=== PATIENT | female | born 1995 | race Caucasian/White ===

== ENCOUNTER → 2017-05-10 | Outpatient (CLI) | payer BC, MEDICAID ==
[~2017-05-10] MED LIST: AVPAK AZITHROM250 MG PO; FERROUS SULFAT325 M2 PO; MEDROL 4MG. DOSE4 MG PO; PRENATAL PLUS1 TA1 PO; PROMETH/CODEIN120 ML PO; TYLENOL W/CODEI1 TA4 PO
--- NOTE | 2017-05-10 09:56 | RADIOLOGY REPORT PS360 ---
US RUQ-(ABD LTD)1ORGAN/QUAD/FU HISTORY: RUQ PAIN ORDERING PHYSICIAN: Neeta Murray APRN PATIENT AGE: 22 years COMPARISON: None FINDINGS: PANCREAS:Unremarkable. No obvious mass or abnormal fluid collection. No ductal dilatation LIVER:No focal liver lesions demonstrated. Homogeneous echogenicity. No intrahepatic biliary ductal dilatation evident RIGHT KIDNEY:Unremarkable. Normal size and echogenicity. No hydronephrosis GALLBLADDER:There are numerous gallstones present. No gallbladder wall thickening, pericholecystic fluid, or biliary dilatation is evident. Common bile duct is 4 mm. IMPRESSION: CHOLELITHIASIS
== END ==
LOC: RAD 08:30
DX: R10.11 Right upper quadrant pain (principal)

== ENCOUNTER → 2017-05-29 | Outpatient (CLI) | payer BC, MEDICAID ==
[2017-05-29 16:07] LABS: BILIRUBIN, INDIRECT 0.3 mg/dL (0-0.9)
== END ==
LOC: LAB 11:17
PROVIDERS: Nurse Practitioner Family
DX: K80.12 Calculus of gallbladder with acute and chronic cholecystitis without obstruction (principal); Z01.818 Encounter for other preprocedural examination

== ENCOUNTER 2017-06-15 06:07 | Day surgery (SDC) | payer BC, MEDICAID ==
[~2017-06-15] VITALS: Ht 165.1 cm; Wt 63.5 kg
--- NOTE | 2017-06-15 08:35 | Operative Note ---
Surgeon/Diagnoses Surgeon/[employer] Manager(s) Date of procedure: 06/15/17 Surgeon: MD Demetrio Harman Diagnoses Pre-op diagnosis: Chronic Calculous Cholecystitis Post-op diagnosis same Procedure Procedure Procedure: Laparoscopic Cholecystectomy Indications: BETHANY SUÁREZ is a 22 year-old Female with a history of right upper quadrant pain and radiographic evidence of chronic calculus cholecystitis. Findings: Significant fat stranding/chronic adhesions between omentum and gallbladder Procedure Description: After informed consent was obtained, the patient was taken to the operating room and placed in the supine position. General anesthesia was induced and the patient's abdomen was prepped and draped in a sterile fashion. After infiltration with local anesthetic an infraumbilical incision was made. A Veress needle was placed in position. The abdomen was insufflated. A 5 mm optical trocar was placed in position. Under direct visualization, 2 additional 5 mm trocars were placed in the RIGHT upper quadrant. A 12 mm trocar was placed in the subxiphoid position. The gallbladder was elevated up and over the liver margin. The tissue around the cystic duct was carefully dissected. Clips were placed proximally and the duct was transected at the infundibulum utilizing harmonic sharad. Harmonic sharad were then utilized to remove the gallbladder from the liver margin. The gallbladder was placed in a retrieval bag and removed through the subxiphoid trocar site. The RIGHT upper quadrant was thoroughly irrigated. No active bleeding or bile leak was noted. The fascia at the subxiphoid trocar site was reapproximated utilizing the sha-close device. Pneumoperitoneum was released as the remaining trocars were removed. All wounds were irrigated and skin was closed with 4-0 Monocryl in a subcuticular fashion. Steri-Strips were applied and the patient's anesthetic agents were reversed. After extubation, the patient was transferred to recovery in stable condition. EBL (ml): 10 Anesthesia: GETA Complications: No immediate Specimens: Gallbladder and contents Disposition Disposition: Stable to recovery from where she will be discharged home. She will follow-up in 1-2 weeks. at 0834
--- NOTE | 2017-06-15 08:54 | Anesthesia Record ---
Anesthesia Record Part II Discharge time: 916 Destination: Same day surgery PACU nurse assessment review? Yes Patient is: Awake, Stable Anesthesia complications? No at 0854
--- NOTE | 2017-06-15 08:54 | Anesthesia Record ---
Anesthesia Record Part I Total IV fluids: 1200 EBL (ml): 10 Urine Output: 0 Units of blood given: 0 B/P: 101/67 % SaO2: 98 Pulse: 82 Resps: 10 Temp: 97.1 Patient is: Awake, Stable Stable to PACU at: 0847 at 0853
[2017-06-15 12:36] VITALS: BP 115/68
== END 2017-06-15 09:46 | disposition home or self-care (01) ==
LOC: SDC 06:07
PROVIDERS: Surgery
PROC: 0FT44ZZ Resection of Gallbladder, Percutaneous Endoscopic Approach (ICD-10-PCS; principal; 2017-06-15 07:30)
DX: K80.10 Calculus of gallbladder with chronic cholecystitis without obstruction (principal)
CPT/HCPCS: J0131; J2405; J2710